=== PATIENT | male | born 1935 | race Caucasian/White ===

== ENCOUNTER → 2021-04-14 | Outpatient (CLI) | payer OTHER ==
[~2021-04-14] MED LIST: ALFU10; DOXA4 PO; FINA5 PO; Prinivil10 MG PO
[2021-04-14 12:37] LABS: BASOPHILS ABSOLUTE AUTO 0.04 K/mm3 (0.00-0.23); BASOPHILS PERCENT AUTO 1 % (0-2); EOSINOPHILS ABSOLUTE AUTO 0.23 K/mm3 (0.00-0.68); EOSINOPHILS PERCENT AUTO 3 % (0-6); Hematocrit 39.4 % (37.0-53.0); Hemoglobin 13.5 g/dL (13.5-17.5); IMMATURE GRAN ABSOLUTE AUTO 0.02 K/mm3 (0.00-0.10); IMMATURE GRAN PERCENT AUTO 0 % (0-1); LYMPHOCYTES ABSOLUTE AUTO 1.33 K/mm3 (0.84-5.20); LYMPHOCYTES PERCENT AUTO 20 % (21-46); MONOCYTES ABSOLUTE AUTO 0.48 K/mm3 (0.16-1.47); MONOCYTES PERCENT AUTO 7 % (4-13); Mean Corpuscular HGB 32.2 pg (26.0-34.0); Mean Corpuscular HGB Conc 34.3 g/dL (31.5-36.5); Mean Corpuscular Volume 94 fL (80-100); NEUTROPHILS PERCENT AUTO 69 % (41-73); Platelet Count 215 K/mm3 (150-400); RDW Coefficient Variation 12.8 % (11.7-14.2); Red Blood Cell Count 4.19 M/mm3 (4.30-5.90)
[2021-04-14 12:54] LABS: International Normalized Ratio 0.99; Prothrombin Time Results 10.4 Sec (9.7-11.5)
== END | disposition home or self-care (01) ==
LOC: LAB SHORT 11:50 → LAB 11:50
PROVIDERS: Physician Assistant
DX: M79.81 Nontraumatic hematoma of soft tissue (principal); R22.43 Localized swelling, mass and lump, lower limb, bilateral
CPT/HCPCS: 85025; 85610; 85730

== ENCOUNTER 2022-04-20 13:49 | Emergency (ER) | payer OTHER ==
[~2022-04-20] VITALS: Ht 177.8 cm; Wt 86.2 kg
[2022-04-20] MEDS ORDERED: BENZ100A PO (16:08)
== END 2022-04-20 16:18 | disposition home or self-care (01) ==
LOC: ER 13:49
DX: R05.9 Cough, unspecified (principal); I10 Essential (primary) hypertension; Z79.899 Other long term (current) drug therapy
CPT/HCPCS: 71046; 99284-25; A9270

== ENCOUNTER 2022-11-29 08:40 | Day surgery (SDC) | payer OTHER ==
[2022-11-29] VITALS (9 sets, daily range): BP systolic 114–153; BP diastolic 69–88
[~2022-11-29] VITALS: Ht 177.8 cm; Wt 83.6 kg
[~2022-11-29 08:40] MED LIST changes: -ALFU10; +ALFU10 PO; +BENZ100A PO; +DOCU100 PO; +HYDCHL25 PO; +IBU600 M1 PO; +LIDO700A20 TOP; +OMEP20ER PO; +POTA10T PO; +SENNA LAXATIVE8.6 MG PO; +VITAMIN E ACETATE
--- NOTE | 2022-11-29 16:30 | NUR ---
[facility] PT IS A&OX4, CALLS APPROPRAITELY, AND CAN MAKE HIS NEEDS KNOWN. HIS INSERTION SITE HAS A C/D/I DRESSING. SITE CLOSED WITH GLUE AND STERI-STRIPS. A CHEST XRAY WAS PREFORMED SHORTLY AFTER THE PT ARRIVED TO THE ROOM. HE WAS GIVEN AN ICE PACK, AND HIS LEFT ARM WAS PLACED IN A SLING. THE PT STATED THAT HE IS NOT IN ANY PAIN AND HE USUALLY DOES NOT C/O PAIN. HE WAS EDUCATED THAT IF HE IS IN ANY DISCOMFORT TO LET STAFF KNOW BECAUSE UNCONTROLLED PAIN CAN CAUSE ISSUES TO THE PROCEDURE SITE. THE PT'S JOSY CAME TO THE ROOM AND WAS UPDATED. BED ALARM ON FOR SAFETY, BED IN LOW, CALL LIGHT IN REACH. PT AND FAMILY ASSESSED AND EDUCATED ON FIRE IGNITION RISK AND SAFTEY. SEE NOTES FOR ANY UPDATES.
--- NOTE | 2022-11-29 21:09 | NUR ---
SAFETY & EDUCATION PT & FAMILY EDUCATED RE: IGINITION SOURCES AND RISK OF INJURY WHILE OXYGEN IS IN USE. PT DENIES SMOKING & PT AND FAMILY VERBALIZE UNDERSTANDING.
[2022-11-30 04:14] VITALS: BP 177/82
--- NOTE | 2022-11-30 04:25 | NUR ---
SHIFT SUMMARY SEE PREVIOUS NOTE. PT A&Ox4, CALLS AND COMMUNICATES NEEDS APPROPRIATELY. BP ELEVATED, MANAGING PER EMAR. PACED 60's, DENIES CP/PRESSURE. SpO2> 92% RA, DENIES SOB. CONTINENT OF URINE, NO BM THIS SHIFT, SBA TO BATHROOM. L CHEST WALL PACER SITE WNL, DRESSING C/D/I. PT DENIES PAIN OR TENDERNESS AT SITE. L ARM SLING IN PLACE. NO OTHER EVENTS, WILL REPORT TO ONCOMING RN.
[2022-11-30 05:29] VITALS: BP 166/92
[2022-11-30 07:25] VITALS: BP 170/71
[2022-11-30 08:51] VITALS: BP 124/66
[2022-11-30] MEDS ORDERED: CEPH500 PO (10:05)
--- NOTE | 2022-11-30 11:19 | NUR ---
D/C SUMMARY DRESSING CHANGED, IV D/C'D, PT BELONGINGS SENT HOME WITH FAMILY. I WENT OVER DISCHARGE INSTRUCTIONS WITH THE PT AND HIS . ALL QUESTIONS ANSWERED. PT AND FAMILY EDUCATED ON FIRE IGNITION RISK AND SAFETY. PT LEFT AT 1110
== END 2022-11-30 11:58 | disposition home or self-care (01) ==
LOC: MHTC 08:40 → PCU 15:23 → MHTC 22:46
DX: I49.5 Sick sinus syndrome (principal); I45.89 Other specified conduction disorders; I10 Essential (primary) hypertension; Z79.899 Other long term (current) drug therapy
CPT/HCPCS: 33208; 71045; 76937; 99152; 99153; A9270; C1785; C1894; C1898; J0360; J0690; J1644; J2250; J3010; J7030; J7040; Q9967